=== PATIENT | male | born 1980 | race Two or more races ===

== ENCOUNTER 2018-04-30 14:51 | Emergency (ER) | payer OTHER ==
[~2018-04-30] VITALS: Ht 177.8 cm; Wt 95.3 kg
[2018-04-30 14:55] VITALS: BP 125/100
[2018-04-30] MEDS ORDERED: predniSONE 20 MG TABLET ONE (15:09)
[2018-04-30] MEDS ORDERED: diphenhydrAMINE HCL 25 MG CAPSULE ONE (15:09)
[2018-04-30] MEDS: DIPHENHYDRAMINE HCL 12.5 MG/5 ML UDC PO ONE (15:12)
[2018-04-30] MEDS: predniSONE 20 MG TABLET PO ONE (15:12)
--- NOTE | 2018-04-30 15:14 | NUR ---
PT. VERBALIZED UNDERSTANDING OF AFTERCARE INSTRUCTIONS.Patient discharged to custody of [employer] in stable condition. Written and verbal after care instructions given. Patient verbalizes understanding of instruction.
== END 2018-04-30 15:16 | disposition home or self-care (01) ==
LOC: ER 14:52
DX: R21 Rash and other nonspecific skin eruption (principal)
CPT/HCPCS: 99283; A4606; J7512; Q0163; Z7610